=== PATIENT | female | born 1965 | race Caucasian/White ===

== ENCOUNTER 2020-07-26 09:01 | Day surgery (SDC) | payer OTHER, SELFPAY ==
[~2020-07-26] VITALS: Ht 152.4 cm; Wt 75.3 kg
[2020-07-26] MEDS ORDERED: BUPIVACAINE-MPF 0.25% 30 ML VIAL INJ ONE (10:38)
[2020-07-26] MEDS ORDERED: LIDOCAINE 1% 500 MG/50 ML VIAL ONE (10:38)
[2020-07-26] MEDS ORDERED: HYDROmorphone 1 MG/ML AMP ONE (11:43)
[2020-07-26] MEDS ORDERED: SUCCINYLCHOLINE CHLORIDE 200 MG/10 ML VIAL IVP ONE (11:43)
[2020-07-26] MEDS ORDERED: DESFLURANE 240 ML BTL INH ONE (11:43)
[2020-07-26] MEDS ORDERED: PROPOFOL 200 MG/20 ML VIAL IV ONE (11:43)
[2020-07-26] MEDS ORDERED: NEOSTIGMINE 1:1000 10 MG/10 ML VIAL ONE (11:43)
[2020-07-26] MEDS ORDERED: KETOROLAC 30 MG/ML VIAL ONE (11:43)
[2020-07-26] MEDS ORDERED: DEXAMETHASONE 4 MG/ML VIAL ONE (11:43)
[2020-07-26] MEDS ORDERED: GLYCOPYRROLATE 0.2 MG/ML VIAL ONE (11:43)
[2020-07-26] MEDS ORDERED: fentaNYL citrate 0.05 MG/ML VIAL ONE (11:43)
[2020-07-26] MEDS ORDERED: ROCURONIUM 50 MG/5 ML VIAL IV ONE (11:43)
[2020-07-26] MEDS ORDERED: ONDANSETRON 4 MG/2 ML VIAL ONE (11:43)
[2020-07-26] MEDS ORDERED: NACL 0.9% 1,000 ML IV SCH (12:50)
[2020-07-26] MEDS ORDERED: MORPHINE SULFATE 4 MG/ML SYR IV PRN (12:50)
[2020-07-26] MEDS ORDERED: ONDANSETRON 4 MG/2 ML VIAL IV PRN (12:50)
[2020-07-26] MEDS ORDERED: HYDROcodone/APAP 5/325 MG 1 TAB TAB PO PRN (12:50)
[2020-07-26] MEDS ORDERED: HYDROmorphone 1 MG/ML AMP IVP PRN (12:50)
[2020-07-26] MEDS ORDERED: ACETAMINOPHEN 325 MG TAB PO PRN (12:50)
[2020-07-26] MEDS ORDERED: MORPHINE SULFATE 2 MG/ML SYR IVP PRN (12:50)
[2020-07-26] MEDS ORDERED: METOCLOPRAMIDE 10 MG/2 ML INJ VIAL ONE (13:34)
[2020-07-26] MEDS ORDERED: METOCLOPRAMIDE 10 MG/2 ML INJ VIAL IVP PRN (13:40)
== END 2020-07-26 14:40 | disposition home or self-care (01) ==
LOC: MDS 09:01 → MMU 09:01 → MDS 14:40
PROVIDERS: ATTEND Surgery
DX: K80.10 Calculus of gallbladder with chronic cholecystitis without obstruction (principal); Z98.890 Other specified postprocedural states; Z20.828 Contact with and (suspected) exposure to other viral communicable diseases
CPT/HCPCS: 36415; 47562; 71045; 82374; 86886; 86900; 86901; 88304; J0330; J0690; J1100; J1170; J1885; J2001; J2405; J2704; J2710; J2765; J3010; J3490; J7030; J7060; J7120; U0003